=== PATIENT | male | born 1960 | race Caucasian/White ===

== ENCOUNTER 2020-04-06 10:34 | Inpatient (IN) ==
[2020-04-06] MEDS ORDERED: hydrALAZINE 20 MG/1 ML VIAL IV STA (11:35)
[2020-04-06 11:39] LABS: Basophils # 0.2 10*3/uL (0.0-0.2); Basophils % 1.1 % (0.0-0.8); Eosinophils # 0.4 10*3/uL (0.0-0.87); Hematocrit 48.2 VOL% (42.0-52.0); Hemoglobin 16.3 GM/DL (14.0-18.0); Immature Granulocytes % 1.1 %; Immature Granulocytes Absolute 0.15 #; Lymphocytes # 2.7 10*3/uL (1.4-4.0); Lymphocytes % 20.2 % (21.2-54.2); Mean Corpuscular HGB Conc 33.8 GM/DL (32-36); Mean Corpuscular Volume 92.7 FL (87-102); Mean Platelet Volume 10.4 FL (9.6-12.0); Monocytes % 7.8 % (1.7-12.7); Neutrophils % 66.8 % (38.7-73.9); Platelet Count 249 T/CUMM (130-400); Red Cell Distribution Width 13.5 % (9.3-17.3); White Blood Count 13.5 T/CUMM (4-12)
[2020-04-06 11:40] LABS: Bilirubin,Urine Negative (Negative); Blood, Urine Negative (Negative); Glucose,Urine (UA) Negative (Negative); Ketones,Urine Negative (Negative); Nitrite,Urine Negative (Negative); Protein,Urine Negative; RBC,Urine 1 /HPF (0-4); Squamous Epithelial Cell,Urine Occasional /HPF (0-10); Urine Appearance CLEAR (Clear); Urine Color Straw (Yellow); Urine Specific Gravity 1.006 (1.001-1.035); Urine Urobilinogen < 2.0 EU/DL (0.2-1.0); WBC,Urine 10 /HPF (0-6)
[2020-04-06 12:12] LABS: Albumin 3.8 G/DL (3.4-5.0); Bilirubin,Total 0.4 MG/DL (0.2-1.0); Calcium 9.2 MG/DL (8.5-10.1); Osmolality,Calculated 270.8 MOS/KG (273-304); Potassium 4.2 MMOL/L (3.5-5.1); Total Protein 7.9 G/DL (6.4-8.3)
[2020-04-06] MEDS ORDERED: SODIUM CHLORIDE 0.9% 1,000 ML IV STA (13:21)
[2020-04-06] MEDS ORDERED: ONDANSETRON 4 MG/2 ML VIAL IV STA (13:21)
[2020-04-06] MEDS ORDERED: ONDANSETRON 4 MG/2 ML VIAL IV PRN (14:06)
[2020-04-06] MEDS ORDERED: NICOTINE 21 MG/24 HR PATCH TRANSDERM PRN (14:06)
[2020-04-06] MEDS ORDERED: DEXTROSE 50% 25 GM/50 ML VIAL IV PRN (14:06)
[2020-04-06] MEDS ORDERED: GLUCAGON 1 MG VIAL IM PRN (14:06)
[2020-04-06 15:05] LABS: Barbiturates Screen,Urine Negative (Negative); Benzodiazepines Screen,Urine Negative (Negative); Cannabinoid Screen,Urine Negative (Negative); Opiate Screen,Urine Negative (Negative); Phencyclidine Screen,Urine Negative (Negative)
[2020-04-06] MEDS: MORPHINE 4 MG/1 ML VIAL IV PRN ×2 (16:49→20:59)
[2020-04-06] MEDS: LACTATED RINGERS 1,000 ML IV SCH (16:52)
[2020-04-06] MEDS ORDERED: cefTRIAXone 1,000 MG in SYRINGE 1 EACH IV SCH (18:00)
[2020-04-06] MEDS ORDERED: DEXAMETHASONE 10 MG/1 ML VIAL ONE (19:02)
[2020-04-06 19:20] LABS: Hepatitis B Core IgM Quant 0.14 Index; Hepatitis B Surface Ag Quant 0.48 Index; Hepatitis B Surface Ag Result Negative (Negative); Hepatitis C Virus Ab Quant 0.13 Index; Hepatitis C Virus Ab Result Negative (Negative)
[2020-04-06] MEDS: hydrALAZINE 20 MG/1 ML VIAL IV PRN (19:49)
[2020-04-06] MEDS: PANTOPRAZOLE 40 MG VIAL IV SCH (20:56)
[2020-04-06 21:03] LABS: Hematocrit 46.9 VOL% (42.0-52.0); Hemoglobin 15.6 GM/DL (14.0-18.0)
[2020-04-06] MEDS: NICOTINE 21 MG/24 HR PATCH TRANSDERM SCH (21:36)
[2020-04-07 01:32] LABS: Basophils # 0.1 10*3/uL (0.0-0.2); Basophils % 0.8 % (0.0-0.8); Eosinophils # 0.1 10*3/uL (0.0-0.87); Eosinophils % 0.8 % (0.00-10.9); Hemoglobin 15.2 GM/DL (14.0-18.0); Immature Granulocytes % 0.9 %; Immature Granulocytes Absolute 0.16 #; Lymphocytes # 2.2 10*3/uL (1.4-4.0); Lymphocytes % 12.4 % (21.2-54.2); Mean Corpuscular HGB Conc 31.7 GM/DL (32-36); Mean Platelet Volume 10.4 FL (9.6-12.0); Monocytes % 6.7 % (1.7-12.7); Neutrophils % 78.4 % (38.7-73.9); Platelet Count 222 T/CUMM (130-400); Red Cell Distribution Width 13.3 % (9.3-17.3); White Blood Count 17.6 T/CUMM (4-12)
[2020-04-07 01:57] LABS: Calcium 8.5 MG/DL (8.5-10.1); Osmolality,Calculated 270.8 MOS/KG (273-304); Potassium 3.7 MMOL/L (3.5-5.1)
[2020-04-07] MEDS: hydrALAZINE 20 MG/1 ML VIAL IV PRN (03:40)
[2020-04-07 06:10] LABS: Hemoglobin 15.2 GM/DL (14.0-18.0)
[2020-04-07] MEDS: PANTOPRAZOLE 40 MG VIAL IV SCH ×2 (08:32→20:30)
[2020-04-07] MEDS: LACTATED RINGERS 1,000 ML IV SCH ×3 (08:33→15:43)
[2020-04-07] MEDS: MORPHINE 4 MG/1 ML VIAL IV PRN (08:37)
[2020-04-07] MEDS: NICOTINE 21 MG/24 HR PATCH TRANSDERM SCH (08:44)
[2020-04-08] MEDS: hydrALAZINE 20 MG/1 ML VIAL IV PRN (00:04)
[2020-04-08] MEDS: MORPHINE 4 MG/1 ML VIAL IV PRN (00:05)
[2020-04-08] MEDS: LACTATED RINGERS 1,000 ML IV SCH ×3 (00:05→17:06)
[2020-04-08 07:51] LABS: Calcium 8.8 MG/DL (8.5-10.1); Osmolality,Calculated 271.7 MOS/KG (273-304)
[2020-04-08] MEDS ORDERED: LACTATED RINGERS 1,000 ML IV SCH (08:00)
[2020-04-08] MEDS ORDERED: KETOROLAC 30 MG/1 ML VIAL ONE (08:15)
[2020-04-08] MEDS ORDERED: LIDOCAINE 2% 5 ML VIAL ONE (08:15)
[2020-04-08] MEDS ORDERED: propofoL 200 MG/20 ML VIAL IV ONE (08:15)
[2020-04-08] MEDS: NICOTINE 21 MG/24 HR PATCH TRANSDERM SCH (09:00)
[2020-04-08] MEDS: PANTOPRAZOLE 40 MG VIAL IV SCH (09:00)
[2020-04-08] MEDS ORDERED: ACETAMINOPHEN 325 MG TABLET PO PRN (14:37)
[2020-04-08] MEDS ORDERED: FLUCONAZOLE 200 MG TABLET PO ONE (15:00)
[2020-04-08] MEDS: PANTOPRAZOLE 40 MG TABLET PO SCH (20:49)
[2020-04-09] MEDS: hydrALAZINE 20 MG/1 ML VIAL IV PRN (00:59)
[2020-04-09] MEDS: LACTATED RINGERS 1,000 ML IV SCH ×2 (00:59→08:38)
[2020-04-09 05:20] LABS: Basophils # 0.1 10*3/uL (0.0-0.2); Eosinophils # 0.3 10*3/uL (0.0-0.87); Hematocrit 46.5 VOL% (42.0-52.0); Hemoglobin 14.7 GM/DL (14.0-18.0); Immature Granulocytes % 0.7 %; Immature Granulocytes Absolute 0.08 #; Lymphocytes # 3.7 10*3/uL (1.4-4.0); Mean Corpuscular HGB Conc 31.6 GM/DL (32-36); Mean Corpuscular Volume 96.9 FL (87-102); Mean Platelet Volume 10.8 FL (9.6-12.0); Monocytes % 8.6 % (1.7-12.7); Neutrophils % 52.7 % (38.7-73.9); Platelet Count 206 T/CUMM (130-400); Red Cell Distribution Width 13.2 % (9.3-17.3); White Blood Count 10.8 T/CUMM (4-12)
[2020-04-09 05:47] LABS: Albumin 3.3 G/DL (3.4-5.0); Bilirubin,Total 1.1 MG/DL (0.2-1.0); Calcium 8.5 MG/DL (8.5-10.1); Osmolality,Calculated 276.3 MOS/KG (273-304); Potassium 3.8 MMOL/L (3.5-5.1); Total Protein 6.7 G/DL (6.4-8.3)
[2020-04-09] MEDS: PANTOPRAZOLE 40 MG TABLET PO SCH (08:37)
[2020-04-09] MEDS: NICOTINE 21 MG/24 HR PATCH TRANSDERM SCH (08:39)
[2020-04-09] MEDS ORDERED: FLUCONAZOLE 100 MG TABLET PO SCH (09:00)
[2020-04-09 12:22] VITALS: BP 145/98
== END 2020-04-09 15:32 | disposition home or self-care (01) | DRG 380 ==
LOC: N.ED 10:34 → SUATTDRO 14:06 → N.EDINP 14:06 → N.5E 19:57
PROVIDERS: ADMIT Internal Medicine; ATTEND Internal Medicine